=== PATIENT | female | born 1990 | race Caucasian/White ===

== ENCOUNTER 2016-11-06 19:28 | Emergency (ER) | payer BC, OTHER ==
[~2016-11-06 19:28] MED LIST: BIRTH CONTROL PILL; FLAGYL PO
[2016-11-06 19:38] LABS: URINE APPEARANCE CLEAR; URINE BILIRUBIN NEG (NEG); URINE BLOOD NEG (NEG); URINE COLOR YELLOW; URINE GLUCOSE NEG (NORM); URINE KETONE NEG (NEG); URINE LEUKOCYTE ESTERASE NEG (NEG); URINE NITRATE NEG (NEG); URINE PROTEIN NEG (NEG); URINE SPECIFIC GRAVITY 1.015 (1.003-1.035)
[2016-11-06 19:49] LABS: MICRO INDICATED? NO
[2016-11-06 19:59] LABS: BASOPHIL# 0.1 X10e3 (0-0.3); BASOPHIL% 0.7 % (0-2.5); EOSINOPHIL# 0.6 X10e3 (0-0.7); EOSINOPHIL% 7.7 % (0.0-7.0); HEMATOCRIT 40.1 % (35.0-45.0); LYMPHOCYTE% 36.3 % (17.0-45.0); MEAN CELL VOLUME 96.2 FL (83-96); MEAN CORPUSCULAR HEMOGLOBIN 31.3 PG (28-34); MEAN CORPUSCULAR HGB CONC 32.6 g/dL (30-36); MEAN PLATELET VOLUME 8.6 FL (6.5-11.5); MONOCYTE# 0.8 X10e3 (0-1.0); MONOCYTE% 9.9 % (3.0-12.0); NEUTROPHIL# 3.7 X10e3 (1.5-7.1); NEUTROPHIL% 45.4 % (40-75); PLATELET COUNT 199 X10e3 (140-420); RED BLOOD COUNT 4.16 X10e (3.90-5.30); RED CELL DISTRIBUTION WIDTH 13.8 % (11.0-15.5); WHITE BLOOD COUNT 8.2 X10e3 (4.0-10.5)
[2016-11-06 20:03] LABS: DIFF IND NO
[2016-11-06 20:06] LABS: ALBUMIN SERUM 4.2 g/dL (3.5-5.0); ALKALINE PHOSPHATASE 38 U/L (32-92); ALT (SGPT) 12 U/L (10-40); AST (SGOT) 15 U/L (10-42); BILIRUBIN, DIRECT 0.1 mg/dL (0.0-0.2); BILIRUBIN,INDIRECT 0.6 mg/dL (0.0-0.9); BILIRUBIN,TOTAL 0.7 mg/dL (0.2-2.0); BLOOD UREA NITROGEN 8 mg/dL (9-23); BUN/CREATININE RATIO 11.42; CALCIUM SERUM 9.1 mg/dL (8.4-10.2); CARBON DIOXIDE 25 mmol/L (22-31); CHLORIDE 105 mmol/L (100-111); CREATININE SERUM 0.7 mg/dL (0.6-1.4); GLOM FILT RATE Estimated ABOVE60 mL/min (>60); GLUCOSE FASTING 90 mg/dL (70-110); LIPASE 30 U/L (22-51); POTASSIUM 3.5 mmol/L (3.5-5.1); PROTEIN TOTAL SERUM 7.3 g/dL (6.0-8.3); SODIUM 138 mmol/L (135-145)
== END 2016-11-06 20:48 | disposition home or self-care (01) ==
LOC: SED 19:28
PROVIDERS: Nurse Practitioner Family
DX: R10.84 Generalized abdominal pain (principal); J45.909 Unspecified asthma, uncomplicated; G43.909 Migraine, unspecified, not intractable, without status migrainosus
CPT/HCPCS: 36415; 80048; 80076; 81003; 83690; 84703; 85025; 99284

== ENCOUNTER 2016-12-15 22:44 | Emergency (ER) | payer BC, OTHER ==
--- NOTE | ~2016-12-15 | EKG ---
PATIENT: ANEL WEST UNIT #: [id number] Ventricular Rate: 68 BPM Atrial Rate: 68 BPM P-R Interval: 134 ms QRS Duration: 80 ms Q-T Interval: 368 ms QTC Calculation(Bezet): 391 ms P [place]: 67 degrees Calculated R [place]: 74 degrees Calculated T [place]: 44 degrees Diagnosis Line: Normal sinus rhythm Diagnosis Line: Normal ECG Diagnosis Line: No previous ECGs available Diagnosis Line: Confirmed by BECKI CABRERA MD ([id number]) on 12/20/2016 Diagnosis Line: 9:24:47 AM INTERPRETING MD: RICK VALIENTE
--- NOTE | ~2016-12-15 | CR63 ---
[facility]. [facility] A Service of [facility] & [facility] RADIOLOGY TEXT RESULTS PATIENT: ANEL WEST LOCATION: SED : 86 UNIT #: [id number] AGE: [address]: Alexa Mendez MD SEX: F ORDER DR: [id number] [address] [id number] MR#: [id number] Acc #: [id number] NAME: ANEL WEST : 1990 SEX: F STUDY DATE/TIME: 12/15/2016 22:27 UNIT: SED ROOM: STUDY DESCRIPTION: CR Chest 2 View Attending Physician: Alexa Mendez M.D. Ordering Physician: Alexa Mendez M.D. Primary Care Physician: [facility]. MEDICAL IMAGING REPORT This report is preliminary unless electronic signature is present. EXAM PA and lateral chest HISTORY Left chest pain for 1 day. FINDINGS Two views of the chest demonstrate the cardiac size and pulmonary vascularity are normal. No airspace infiltrates or effusions. Mild mid-right thoracic curve. Mild hypertrophic spurring mid thoracic spine. IMPRESSION No acute findings and no active disease. Dictated by... Patel Vaughan M.D. THIS IS AN ELECTRONICALLY VERIFIED REPORT Patel Vaughan M.D. at 12/16/2016 11:42 PM GABBY/jose TD: 12/16/2016 00:47 JOB #: [id number] MEDICAL IMAGING REPORT Page 1 of 1
[2016-12-15 22:23] LABS: BASOPHIL# 0.1 X10e3 (0-0.3); DIFF IND NO; EOSINOPHIL# 0.5 X10e3 (0-0.7); EOSINOPHIL% 5.9 % (0.0-7.0); HEMATOCRIT 40.2 % (35.0-45.0); HEMOGLOBIN 13.3 gm/dL (12.0-16.0); LYMPHOCYTE# 3.1 X10e3 (1.0-3.5); LYMPHOCYTE% 38.4 % (17.0-45.0); MEAN CELL VOLUME 96.5 FL (83-96); MEAN CORPUSCULAR HGB CONC 33.1 g/dL (30-36); MEAN PLATELET VOLUME 8.2 FL (6.5-11.5); MONOCYTE# 0.9 X10e3 (0-1.0); MONOCYTE% 11.5 % (3.0-12.0); NEUTROPHIL# 3.5 X10e3 (1.5-7.1); NEUTROPHIL% 43.2 % (40-75); PLATELET COUNT 184 X10e3 (140-420); RED BLOOD COUNT 4.17 X10e (3.90-5.30); RED CELL DISTRIBUTION WIDTH 13.4 % (11.0-15.5); WHITE BLOOD COUNT 8.1 X10e3 (4.0-10.5)
[2016-12-15 22:42] LABS: BUN/CREATININE RATIO 24.28; CALCIUM SERUM 9.2 mg/dL (8.4-10.2); CREATININE SERUM 0.7 mg/dL (0.6-1.4); GLOM FILT RATE Estimated 117.9 mL/min (>60); POTASSIUM 3.7 mmol/L (3.5-5.1)
[2016-12-15 22:42] LABS: POC - CKMB <1.0 ng/mL (0.0-7.9); POC - TROPONIN <0.05 ng/mL (<=0.05)
== END 2016-12-15 23:19 | disposition home or self-care (01) ==
LOC: SED 22:44
PROVIDERS: Emergency Medicine
DX: R07.81 Pleurodynia (principal)
CPT/HCPCS: 36415; 71020; 80048; 82553; 84484; 85025; 85379; 93005; 96374; 99284; J1885